=== PATIENT | female | born 1990 | race Caucasian/White ===

== ENCOUNTER 2017-10-08 01:29 | Emergency (ER) | payer OTHER ==
[~2017-10-08] VITALS: Ht 170.2 cm; Wt 115.7 kg
[2017-10-08] MEDS ORDERED: PRENATAL (01:42)
[2017-10-08 01:44] VITALS: BP 136/79
== END 2017-10-08 02:35 | disposition home or self-care (01) ==
LOC: M.ERS 01:29
DX: M54.32 Sciatica, left side (principal); Z88.1 Allergy status to other antibiotic agents; Z88.8 Allergy status to other drugs, medicaments and biological substances